=== PATIENT | female | born 2005 | race Caucasian/White ===

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

== ENCOUNTER 2025-03-05 11:17 | Emergency (ER) | payer OTHER ==
[~2025-03-05] VITALS: Ht 157.5 cm; Wt 43.5 kg
[~2025-03-05 11:17] MED LIST changes: +ONDA4ODT PO; +OSEL75CA PO
[2025-03-05 11:39] VITALS: BP 104/78
[2025-03-05] MEDS ORDERED: Fluorescein Sod 1MG Opth Strips LEFTEYE ONE (11:45)
[2025-03-05] MEDS ORDERED: Tetracaine HCl/Pf 0.5% Opth Soln 4 ml LEFTEYE ONE (11:45)
[2025-03-05] MEDS ORDERED: NS 1,000 ML IV ONE (13:35)
[2025-03-05] MEDS ORDERED: NS 1,000 ML IV SCH (13:45)
[2025-03-05] MEDS ORDERED: MOXIFLOXACIN LEFTEYE (14:48)
== END 2025-03-05 15:16 | disposition home or self-care (01) ==
LOC: ER 11:17
DX: H57.8A2 Foreign body sensation, left eye (principal); H10.9 Unspecified conjunctivitis; H53.142 Visual discomfort, left eye; R51.9 Headache, unspecified
CPT/HCPCS: 96360; 99283-25; A9270; J7030